=== PATIENT | female | born 1995 | race Caucasian/White ===

== ENCOUNTER 2018-03-23 12:07 | Emergency (ER) | payer OTHER ==
--- NOTE | 2018-03-23 12:44 | ED ---
HPI Diabetic - HPI Summary HPI Summary: A 23 y/o F referred from [facility] presents to ED with elevated blood sugar of 517 onset [employer]. Associated sx: excess thirst for two months, excess urination, fatigue, dizziness after working out but resolved. Denies fever, recent illness. Recent weight loss of 8 lbs over two months pt is not trying to lose weight. Pt takes an oral contraceptive and has LUE contraceptive implant. 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 No PMHx: thyroid issues. This is Chapo manzano, documenting for attending Dr. Rinku Lara MD. - History Of Current Complaint Chief Complaint: EDDiabeticProb Time Seen by Provider: 03/23/18 12:29 Hx Obtained From: Patient, Other: - friend Onset/Duration: Still Present Timing: Constant Severity Initially: Mild Severity Currently: Mild Character: Alert Associated Signs & Symptoms: Polydipsia, Polyuria - Allergies/Home Medications Allergies/Adverse Reactions: Allergies Allergy/AdvReac Type Severity Reaction Status Date / Time No Known Allergies Allergy Verified 03/23/18 13:02 PMH/Surg Hx/FS Hx/Imm Hx Previously Healthy: Yes Endocrine/Hematology History: Denies: Hx Thyroid Disease Respiratory History: Denies: Hx Chronic Obstructive Pulmonary Disease (COPD) Infectious Disease History: No Infectious Disease History: Denies: Traveled Outside the [place] in Last 30 Days - Family History Known Family History: Negative: Diabetes - Social History Occupation: Student Lives: With Family Alcohol Use: Occasionally Hx Substance Use: No Substance Use Type: Reports: None Hx Tobacco Use: No Smoking Status (MU): Never Smoked Tobacco Review of Systems - ROS Summary Review of Systems Summary: Elevated blood sugar. Positive: Fatigue, Other. Negative: Fever, Chills Negative: Erythema Negative: Sore Throat Negative: Chest Pain Negative: Shortness Of Breath, Cough Positive: Other - excess thirts. Negative: Abdominal Pain, Vomiting, Nausea Positive: other - excess urination. Negative: dysuria, hematuria Negative: Myalgia, Edema Negative: Rash Neurological: Other - pos: dizziness - resolved All Other Systems Reviewed And Are Negative: Yes Physical Exam - Summary Physical Exam Summary: Constitutional: Well-developed, Well-nourished, Alert. (-) Distressed Skin: Warm, Dry HENT: Normocephalic; Atraumatic Eyes: Conjunctiva normal Neck: Musculoskeletal ROM normal neck. (-) JVD, (-) Stridor, (-) Tracheal deviation Cardio: Rhythm regular, rate normal, Heart sounds normal; Intact distal pulses; The pedal pulses are 2+ and symmetric. Radial pulses are 2+ and symmetric. (-) Murmur Pulmonary/Chest wall: Effort normal. (-) Respiratory distress, (-) Wheezes, (-) Rales Abd: Soft, (-), epigastric tenderness, (-) Distension, (-) Guarding, (-) Rebound Musculoskeletal: (-) Edema Lymph: (-) Cervical adenopathy Neuro: Alert, Oriented x3 Psych: Mood and affect Normal Triage Information Reviewed: Yes Vital Signs On Initial Exam: Initial Vitals Temp Pulse Resp BP Pulse Ox 98.2 F 60 16 141/105 98 03/23/18 12:14 03/23/18 12:14 03/23/18 12:14 03/23/18 12:14 03/23/18 12:14 Vital Signs Reviewed: Yes Diagnostics - Vital Signs Vital Signs Temp Pulse Resp BP Pulse Ox 03/23/18 12:14 98.2 F 60 16 141/105 98 - Laboratory Result Diagrams: 03/23/18 12:58 03/23/18 12:57 Lab Statement: Any lab studies that have been ordered have been reviewed, and results considered in the medical decision making process. - EKG 1243 Cardiac Rate: Bradycardia - 51bpm EKG Rhythm: Sinus Bradycardia EKG Interpretation: no STEMI Re-Evaluation - Re-Evaluation 1 Re-Evaluation Time: 15:08 Change: Unchanged Comment: Discussing D/C plans and f/u care with pt. Pt voiced understanding. Diabetic Course/Dx - Course Course Of Treatment: Left voicemail with diabetic education to contact patient. HgB/A1C pending until tomorrow morning. Discussed with Dr. Ng, and Dr Perez will manage care at tomrorow's visit. No evidence of DKA, recommended hydration and dietary modification. - Diagnoses Provider Diagnoses: Diabetes - Physician Notifications Discussed Care Of Patient With: Isidra Ng - Hospitalist Time Discussed With Above Provider: 14:30 Instructed by Provider To: Other - Scheduled to see Dr. Perez and [facility] tomorrow 08. Not initiating medical management until Hgb / AC1 is back. Recommends dietary modifcation. Discharge - Sign-Out/Discharge Documenting (check all that apply): Patient Departure - D/C - Discharge Plan Condition: Stable Disposition: HOME Patient Education Materials: Diabetes and Nutrition (ED) Referrals: [facility] [Outside] - 03/24/18 8:30 am (You have been referred to the [facility]. The clinic is located on the 3rd floor of the [facility] at [address] [place] [address]. If you need to adjust your appointment, or need assistance to arrange transportation please call the clinic at [phone]. Plan to arrive to your appointment 15 minutes early and expect the appointment to take up to 1 1/2 hours. If you are at a new address or have a new phone number, please call the clinic to update your information. Please bring the following to your appointment: - Insurance Card: Your most recent insurance card(s) - Photo identification: [place] ID; Production [employer] Operator's licenses, state photo ID cards or student ID - Medication: Bring your medication bottles or bring a current list of your medications. Including prescribed, [id number] medications, supplements, and herbs. - Copay if applicable. The clinic accepts the following forms of payment: Garcia, Check & Credit (Visa, MasterCard, AMEX, Discover). We look forward to meeting all of your healthcare needs. Sincerely, [facility] ) No Primary Care Phys,NOPCP [Primary Care Provider] - Additional Instructions: Follow up tomorrow at 08:[address] Perez at [facility] on the 3rd floor of [facility]. The [employer] has been contacted and should call you to follow up. Recommended dietary modifications as we discussed. Return to the emergency department for changing or worsening symptoms.
[2018-03-23 13:15] LABS: Hematocrit 42 % (35-47); Hemoglobin 14.8 g/dl (12.0-16.0); Mean Corpuscular HGB Conc 35 g/dl (31-36); Mean Corpuscular Hemoglobin 31 pg (27-31); Mean Corpuscular Volume 89 fL (80-97); Mean Platelet Volume 11.8 um3 (7.4-10.4); Platelet Count 137 10^3/ul (150-450); Red Blood Count 4.77 10^6/ul (4.00-5.40); Red Cell Distribution Width 12 % (10.5-15); White Blood Count 6.7 10^3/ul (3.5-10.8)
[2018-03-23 13:22] LABS: EGFR Non-African American 71.2 (>60)
[2018-03-23 13:26] LABS: ABS Basophils 0 10^3/ul (0-0.2); ABS Eosinophils 0.1 10^3/ul (0-0.6); ABS Monocytes 0.4 10^3/ul (0-0.8); ABS Neutrophils 4.2 10^3/ul (1.5-7.7); ABS Nucleated RBC 0 10^3/ul; Eosinophil % 1.6 % (0-6); Lymphocyte % 29.7 % (25-47); Nucleated Red Blood Cells % 0.2
[2018-03-23 14:10] LABS: Urine Appearance Clear; Urine Blood Negative (Negative); Urine Color Yellow; Urine Ketones 2+ (Negative); Urine Protein Negative (Negative); Urine Specific Gravity 1.042 (1.010-1.030); Urine Urobilinogen Negative (Negative)
[2018-03-23 15:22] VITALS: BP 147/88
== END 2018-03-23 15:21 | disposition home or self-care (01) ==
LOC: ED 12:07
DX: E11.9 Type 2 diabetes mellitus without complications (principal); R00.1 Bradycardia, unspecified
CPT/HCPCS: 36415; 80053; 81003; 82803; 83036; 83605; 85025; 86140; 93005; 99282